=== PATIENT | male | born 1985 | race Caucasian/White ===

== ENCOUNTER 2017-12-07 16:59 | Emergency (ER) | payer OTHER ==
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
[2017-12-07] MEDS ORDERED: KETOROLAC TROMETHAMINE 60 MG/2 ML SDV IM ONE (19:36)
[2017-12-07 20:00] VITALS: BP 149/90
== END 2017-12-07 20:00 | disposition home or self-care (01) ==
LOC: ER 16:59
DX: M54.5 Low back pain (principal); V87.7XXA Person injured in collision between other specified motor vehicles (traffic), initial encounter
CPT/HCPCS: 99283; 96372; 72110; J1885